=== PATIENT | female | born 2000 | race Caucasian/White ===

== ENCOUNTER 2020-01-19 05:40 | Inpatient (IN) ==
[2020-01-19] MEDS ORDERED: BUTORPHANOL 2 MG/ML VIAL IV PRN (07:35)
[2020-01-19] MEDS ORDERED: AMPICILLIN INJ 2,000 MG in SODIUM CHLORIDE 0.9% 100 ML IV ONE (07:41)
[2020-01-19] MEDS: LACTATED RINGERS 1,000 ML IV SCH ×3 (07:51→20:00)
[2020-01-19 08:06] LABS: Basophils % 0.4 % (0.0-0.8); Eosinophils # 0.2 10*3/uL (0.0-0.87); Eosinophils % 1.7 % (0.00-10.9); Hematocrit 33.3 VOL% (35.7-47.0); Hemoglobin 10.4 GM/DL (12.0-16.0); Immature Granulocytes % 0.7 %; Immature Granulocytes Absolute 0.07 #; Lymphocytes # 2.5 10*3/uL (1.4-4.0); Lymphocytes % 24.6 % (21.3-54.2); Mean Corpuscular HGB Conc 31.2 GM/DL (32-36); Mean Corpuscular Volume 74.8 FL (87-102); Mean Platelet Volume 9.3 FL (9.6-12.0); Monocytes % 7.6 % (1.7-12.7); Platelet Count 465 T/CUMM (130-400); Red Blood Count 4.45 MC/CUMM (3.8-5.5); Red Cell Distribution Width 15.7 % (9.3-17.3); White Blood Count 10.2 T/CUMM (4-12)
[2020-01-19 08:30] LABS: Alanine Aminotransferase 19 U/L (13-56); Albumin 2.3 G/DL (3.4-5.0); Alkaline Phosphatase 199 U/L (45-117); Aspartate Amino Transferase 30 U/L (0-37); Bilirubin,Total < 0.39 MG/DL (0.2-1.0); Blood Urea Nitrogen 8 MG/DL (7-18); Estimated Glom Filtration Rate 170 ML/MIN; Glucose 69 MG/DL (74-106); Osmolality,Calculated 268.8 MOS/KG (273-304); Total Protein 6.4 G/DL (6.4-8.3)
[2020-01-19] MEDS: AMPICILLIN INJ 1,000 MG in SODIUM CHLORIDE 0.9% 100 ML IV SCH ×3 (12:06→20:01)
[2020-01-19] MEDS ORDERED: ePHEDrine 50 MG/ML VIAL IV PRN (12:15)
[2020-01-19] MEDS ORDERED: FAMOTIDINE 20 MG/2 ML VIAL IV ONE (12:15)
[2020-01-19] MEDS ORDERED: CITRIC ACID/SODIUM CITRATE 30 ML UDCUP PO ONE (12:15)
[2020-01-19] MEDS ORDERED: LACTATED RINGERS 1,000 ML IV ONE (12:15)
[2020-01-19] MEDS ORDERED: hydrOXYzine HCL 25 MG/1 ML VIAL IM PRN (12:16)
[2020-01-19] MEDS ORDERED: diphenhydrAMINE 50 MG/1 ML VIAL IV PRN ×2 (12:16)
[2020-01-19] MEDS ORDERED: PROMETHAZINE 25 MG/1 ML VIAL IM ONE (12:16)
[2020-01-19] MEDS ORDERED: NALOXONE 0.4 MG/ML VIAL IV PRN (12:16)
[2020-01-19] MEDS: ONDANSETRON 4 MG/2 ML VIAL IV PRN (12:22)
[2020-01-19] MEDS: MEPERIDINE 50 MG/1 ML VIAL IV PRN ×2 (12:27→16:11)
[2020-01-19] MEDS ORDERED: OXYTOCIN/LR 20 UNIT/1,000 ML BAG IV SCH (12:30)
[2020-01-19] MEDS: fentaNYL 2 MCG/ROPIV 0.2% EPID 100 ML EPIDURAL SCH (20:02)
[2020-01-19 20:28] LABS: Apearance,Urine CLEAR (Clear); Bilirubin,Urine Negative (Negative); Blood, Urine Negative (Negative); Glucose,Urine (UA) Negative (Negative); Ketones,Urine Negative (Negative); Mucus,Urine Occasional /LPF (Occasional); Nitrite,Urine Negative (Negative); Protein,Urine Negative; RBC,Urine 5 /HPF (0-4); Urine Color Yellow (Yellow); Urine Specific Gravity 1.021 (1.001-1.035); Urine Urobilinogen < 2.0 EU/DL (0.2-1.0); WBC,Urine 1 /HPF (0-6)
[2020-01-20] MEDS: AMPICILLIN INJ 1,000 MG in SODIUM CHLORIDE 0.9% 100 ML IV SCH ×2 (00:10→04:04)
[2020-01-20] MEDS: ONDANSETRON 4 MG/2 ML VIAL IV PRN (03:17)
[2020-01-20] MEDS: fentaNYL 2 MCG/ROPIV 0.2% EPID 100 ML EPIDURAL SCH (04:41)
[2020-01-20] MEDS ORDERED: CARBOPROST TROMETHAMINE 250 MCG/ML AMP IM ONE (04:59)
[2020-01-20] MEDS ORDERED: OXYTOCIN/LR 20 UNIT/1,000 ML BAG IV ONE ×2 (04:59→06:42)
[2020-01-20] MEDS ORDERED: TRANEXAMIC ACID 1,000 MG/10 ML VIAL ONE (04:59)
[2020-01-20] MEDS ORDERED: miSOPROStoL 200 MCG TABLET ONE (04:59)
[2020-01-20] MEDS ORDERED: METHYLERGONOVINE 0.2 MG/1 ML AMP ONE (04:59)
[2020-01-20] MEDS ORDERED: LIDOCAINE 1% 50 ML VIAL ONE (05:00)
[2020-01-20 05:40] LABS: Cord Arterial Blood HCO3 20.3 MMOL/L
[2020-01-20 05:43] LABS: Cord Venous Blood HCO3 21.8 MMOL/L; Cord Venous Blood PO2 28.4
[2020-01-20] MEDS ORDERED: DIPH/TET/ACEL PERT BOOSTER VACCINE 0.5 ML VIAL IM ONE (06:42)
[2020-01-20] MEDS ORDERED: oxyCODONE/ACETAMINOPHEN 5-325 MG TABLET PO PRN (06:42)
[2020-01-20] MEDS ORDERED: HYDROCORTISONE 2.5% RECTAL CREAM 30 GM TUBE TOP PRN (06:42)
[2020-01-20] MEDS ORDERED: ONDANSETRON 4 MG/2 ML VIAL IV PRN (06:42)
[2020-01-20] MEDS ORDERED: BISACODYL 10 MG SUPP RECTAL PRN (06:42)
[2020-01-20] MEDS ORDERED: RHO(D) IMMUNE GLOBULIN 300 MCG SYRINGE IM ONE (06:42)
[2020-01-20] MEDS ORDERED: MEASLES/MUMPS/RUBELLA VACCINE 0.5 ML VIAL SUBCUT ONE (06:42)
[2020-01-20] MEDS ORDERED: BENZOCAINE 20%/MENTHOL 0.5% SPRAY 56 GM CAN TOP PRN (06:42)
[2020-01-20] MEDS ORDERED: WITCH HAZEL PADS 100/JAR TOP PRN (06:42)
[2020-01-20] MEDS ORDERED: ACETAMINOPHEN 325 MG TABLET PO PRN (06:42)
[2020-01-20] MEDS ORDERED: LANOLIN 50% CREAM 0.3 OZ TUBE TOP PRN (06:42)
[2020-01-20] MEDS: DOCUSATE SODIUM 100 MG CAPSULE PO SCH ×2 (09:57→21:27)
[2020-01-20] MEDS: IBUPROFEN 800 MG TABLET PO PRN ×2 (17:51→23:54)
[2020-01-20] MEDS: oxyCODONE/ACETAMINOPHEN 5-325 MG TABLET PO PRN ×2 (17:52→23:53)
[2020-01-21 04:36] LABS: Basophils % 0.2 % (0.0-0.8); Eosinophils # 0.4 10*3/uL (0.0-0.87); Eosinophils % 2.7 % (0.00-10.9); Hematocrit 30.2 VOL% (35.7-47.0); Hemoglobin 9.2 GM/DL (12.0-16.0); Immature Granulocytes % 0.5 %; Immature Granulocytes Absolute 0.07 #; Lymphocytes # 3.4 10*3/uL (1.4-4.0); Lymphocytes % 26.2 % (21.3-54.2); Mean Corpuscular HGB Conc 30.5 GM/DL (32-36); Mean Corpuscular Volume 77.4 FL (87-102); Mean Platelet Volume 9.2 FL (9.6-12.0); Monocytes % 6.5 % (1.7-12.7); Neutrophils % 63.9 % (38.7-73.9); Platelet Count 365 T/CUMM (130-400); Red Cell Distribution Width 15.9 % (9.3-17.3)
[2020-01-21] MEDS: IBUPROFEN 800 MG TABLET PO PRN (10:04)
[2020-01-21] MEDS: oxyCODONE/ACETAMINOPHEN 5-325 MG TABLET PO PRN (10:05)
[2020-01-21] MEDS: DOCUSATE SODIUM 100 MG CAPSULE PO SCH (10:06)
[2020-01-21 11:13] VITALS: BP 114/64
== END 2020-01-21 14:50 | disposition home or self-care (01) | DRG 807 ==
LOC: N.LD 05:40 → N.OB 01-20 08:43
PROVIDERS: ADMIT Obstetrics & Gynecology; ATTEND Obstetrics & Gynecology